=== PATIENT | male | born 1955 | race African-American/Black ===

== ENCOUNTER → 2016-07-27 | Outpatient (CLI) | payer BC ==
--- NOTE | 2016-07-27 17:18 | US ---
HISTORY: Right upper quadrant pain. Study: Abdominal ultrasound. Comparison: None. Technique: Multiple smith scale and color flow Doppler images of the abdomen were obtained. Findings: The liver is enlarged to 18.5 cm and demonstrates increased echotexture consistent with diffuse fatt y infiltration. No intraparenchymal mass or intrahepatic biliary ductal dilatation can be identifie d. A large shadowing gallstone is seen within the gallbladder neck. The gallbladder wall measures 2 mm. No evidence of pericholecystic fluid. The common bile duct is normal measuring 3 mm. The visualized portions of the pancreas appears normal. The spleen is not well seen. The right and left kidney are normal in echotexture and size. The right kidney measures 9.4 cm. The left kidney measures 11.5 cm. No mass, hydronephrosis, or stone can be identified. The visualized portions of the abdominal aorta are normal in size without aneurysmal dilatation. Th e inferior vena cava is unremarkable as well. IMPRESSION: 1. Cholelithiasis without sonographic evidence to suggest cholecystitis. 2. Hepatomegaly and hepatic steatosis. Reported By:
== END ==
LOC: RAD 08:25
PROVIDERS: ATTEND Family Medicine
DX: R10.11 Right upper quadrant pain (principal); K80.80 Other cholelithiasis without obstruction
CPT/HCPCS: 76700

== ENCOUNTER 2016-08-15 23:09 | Emergency (ER) | payer BC ==
[2016-08-15 23:29] VITALS: BP 167/93; BMI 31.3
[2016-08-15] MEDS ORDERED: DILAUDID INJ IVP ONE (23:35)
--- NOTE | 2016-08-15 23:45 | DR.GENAD ---
HPI - PCP Primary Care Physician: NFD - HPI Comment HPI Comment: Abdominal pain - Complaint/Symptoms Chief Complaint Doctors Comments: Abdomianl pain today. Onset was about 2100 hrs. He caharaterised this as being sharp in nature. Location is in the upper abdomen. It radiates to his back. He feels nauseous but has no vomitting or diarrhea. He has had grilled meat/bajed meat and pull pork as part of August celebration today. The pain has been intermittent in nature for over 1 month now. He states that he presented to this E.D about 3 weeks ago and he was diagnosed via abdominal U/S with cholelithiasis. He has been scheduled for outpt. cholecystectomy by Dr. Francine Cochran for 09/12/16 in [place], [place]. He has Tramadol at home for Hip OA but it did not ewlieve this pain. Chief Complaint:: "GALL BLADDER ATTACK" BACK AND ABDOMINAL PAIN Self Treatment fo Chief Complaint: use of Tramadol x 1 tablet. - Nurses notes reviewed Nurses Notes Review: Yes - Source History Provided: Patient, Family Member - Mode of Arrival Mode of Arrival: Ambulatory - Timing Onset of Chief Complaint: 08/15/16 Came on: Gradually - Duration Duration: Since Onset How lon Duration: Hours - Location Location: Epigastric area - Severity Severity: Moderate, Severe - Modifying Factors Worsens:: meals - Associated Signs and Symptoms Associated Signs and Symptoms: nausea PMH - PMH Past Medical History: Yes Past Medical History: Arthritis Past Medical History Comment: Gallstones recently dx. 3 weeks ago. Past Surgical History: Yes Surgical History: Appendectomy, Other (bilateral Inguinal hernia repair) - Family History History of Family Medical Conditions: No - Social History Does patient currently use any type of tobacco product: No Have you used tobacco products in the last 12 months: No Type of Tobacco Use: Cigarettes Does any household member use tobacco: No Alcohol Use: Occasionally Do you use any recreational Drugs:: No Lives With: Family Lives Where: Home - infectious screening In the last 2 months have you had wt loss of >10#?: NO Have you had fever, night sweats or hemotysis?: No Have you traveled outside the country in the last 6 months?: No Isolation: Standard ROS - Review of Systems Gastrointestinal/Abdominal: Abdominal Pain (epigastric) PE - Vital Signs Vitals: Temperature 98.2 F Pulse Rate 59 Respiratory Rate 16 Blood Pressure 167/93 O2 Sat by Pulse Oximetry 100 - General Limitations: No Limitations General Appearance: Alert - Head Head Exam: Normal Inspection, Normocephalic - Eyes Eye exam: Normal Appearance - ENT ENT Exam: Normal Exam External Ear Exam: Normal External Inspection TM/Canal Exam: Bilateral Normal Nose Exam: Normal Nose Exam Mouth Exam: Normal Inspection Throat Exam: Normal Inspection - Neck Neck Exam: Normal Inspection, Full ROM, Trachea Midline - Chest Chest Inspection: Normal Inspection, Symmetric Chest Wall Rise - Respiratory Respiratory Exam: Normal Lung Sounds Bilat Respiratory Exam: Bilateral Clear to Auscultation - Cardiovascular Cardiovascular Exam: Regular Rate, Normal Rhythm, +S1, +S2 - Abdominal Exam Abdominal Exam: Normal Inspection, Normal Bowel Sounds, Soft, Tenderness Abdominal Tenderness: RUQ, Epigastrium - Extremities Extremities Exam: Normal Inspection, Full ROM - Back Back Exam: Normal Inspection - Neurologic Neurological Exam: Alert, Oriented X3, CN II-XII Intact, Normal Gait - Psychiatric Psychiatric Exam: Normal Affect, Normal Mood - Skin Skin Exam: Warm, Dry, Intact, Normal Color MDM - Additional Information Additional Information Obtained From: Family - Differential Diagnosis Differential Diagnosis: PUD; Cholelithiasis; Cholecystitis; Pancreatitis Course - Reevaluation 1st: Improved 2nd: Resolved (at 00:45 hrs.) - Education/Counseling Education/Counseling: Patient, Family, Education Educated On: Treatment, Diagnosis, Prognosis ROR - Labs Reviewed Result Diagrams: 08/15/16 23:58 08/15/16 23:58 Laboratory: WBC 10.4 X10^3/uL (3.6-10.0) H 08/15/16 23:58 RBC 5.23 X10^6/uL (4.7-6.0) 08/15/16 23:58 Hgb 12.9 g/dL (13.5-18.0) L 08/15/16 23:58 Hct 39.7 % (42.0-54.0) L 08/15/16 23:58 MCV 76.0 fL (80.0-100.0) L 08/15/16 23:58 MCH 24.6 pg (27.0-34.0) L 08/15/16 23:58 MCHC 32.4 g/dL (33.0-35.0) L 08/15/16 23:58 RDW 14.2 % (11.6-16.5) 08/15/16 23:58 Plt Count 154 X10^3/uL (150.0-450.0) 08/15/16 23:58 Plt Count Comment Adequate (ADEQUATE) 08/15/16 23:58 MPV 9.3 fL (7.4-11.0) 08/15/16 23:58 Neut % 60.8 % (42.0-75.0) 08/15/16 23:58 Lymph % 26.5 % (21.0-51.0) 08/15/16 23:58 [place] % 8.1 % (0.0-13.0) 08/15/16 23:58 Eos % 3.7 % (0.9-2.9) H 08/15/16 23:58 Baso % 0.9 % (0.2-1.0) 08/15/16 23:58 Neut # 6.3 x10^3/uL (2.2-4.8) H 08/15/16 23:58 Lymph # 2.8 X10^3/uL (1.3-2.9) 08/15/16 23:58 [place] # 0.8 x10^3/uL (0.3-0.8) 08/15/16 23:58 Eos # 0.4 x10^3/uL (0.0-0.2) H 08/15/16 23:58 Baso # 0.1 X10^3/uL (0.0-0.1) 08/15/16 23:58 Absolute Nucleated RBC 0.0 /100WBC 08/15/16 23:58 Plt Morphology Comment Normal (NORMAL) 08/15/16 23:58 RBC Morphology Abnormal (NORMAL) 08/15/16 23:58 Hypochromasia Slight A 08/15/16 23:58 Sodium 137 mmol/L (136-145) 08/15/16 23:58 Corrected Sodium 137 mmol/L (136-145) 08/15/16 23:58 Potassium 3.6 mmol/L (3.5-5.1) 08/15/16 23:58 Chloride 104 mmol/L (98-107) 08/15/16 23:58 Carbon Dioxide 25.3 mmol/L (21-32) 08/15/16 23:58 BUN 15 mg/dL (7-18) 08/15/16 23:58 Creatinine 0.94 mg/dL (0.70-1.30) 08/15/16 23:58 Est GFR (MDRD) Af Amer > 60 (>60) 08/15/16 23:58 Est GFR (MDRD) Non-Af > 60 (>60) 08/15/16 23:58 Glucose 119 mg/dL (65-99) H 08/15/16 23:58 Calcium 9.0 mg/dL (8.5-10.1) 08/15/16 23:58 Corrected Calcium TNP 08/15/16 23:58 Total Bilirubin 0.40 mg/dL (0.2-1.0) 08/15/16 23:58 AST 14 Units/L (15-37) L 08/15/16 23:58 ALT 31 Units/L (12-78) 08/15/16 23:58 Alkaline Phosphatase 67 Units/L (46-116) 08/15/16 23:58 Total Protein 7.3 g/dL (6.4-8.2) 08/15/16 23:58 Albumin 3.7 g/dL (3.4-5.0) 08/15/16 23:58 Globulin 3.6 g/dL (2.5-4.5) 08/15/16 23:58 Albumin/Globulin Ratio 1.0 Ratio (1.1-2.1) L 08/15/16 23:58 Amylase 92 Units/L (25-115) 08/15/16 23:58 Lipase 135 Units/L (73-393) 08/15/16 23:58 - XRAY XRAY Interpreted by: Self (C) XRAY Findings: CXR: NO acute disease; ABD: no free air, normal air/gas pattern. - Diagnosis Discharge Problem: Epigastric abdominal tenderness without rebound tenderness - Discharge Plan Disposition: 01 HOME, SELF-CARE Condition: Stable Prescriptions: Hydrocodone-Acet 5 mg/325 mg [NORCO 5 MG/325 MG *] 1 tab PO Q8H PRN #9 tab PRN Reason: - Follow ups/Referrals Follow ups/Referrals: NFD,None [Primary Care Provider] - 3 days - Instructions Instructions: Cholelithiasis
[2016-08-15] MEDS ORDERED: DILAUDID INJ ONE (23:56)
[2016-08-15] MEDS ORDERED: PHENERGAN INJ 25 MG IVP ONE (23:59)
[2016-08-16 00:10] LABS: BASOPHILS # (AUTO) 0.1 X10^3/uL (0.0-0.1); BASOPHILS % (AUTO) 0.9 % (0.2-1.0); EOSINOPHILS # (AUTO) 0.4 x10^3/uL (0.0-0.2); EOSINOPHILS % (AUTO) 3.7 % (0.9-2.9); HEMATOCRIT 39.7 % (42.0-54.0); HEMOGLOBIN 12.9 g/dL (13.5-18.0); LYMPHOCYTES # (AUTO) 2.8 X10^3/uL (1.3-2.9); LYMPHOCYTES % (AUTO) 26.5 % (21.0-51.0); MEAN CORPUSCULAR HEMOGLOBIN 24.6 pg (27.0-34.0); MEAN CORPUSCULAR HGB CONC 32.4 g/dL (33.0-35.0); MEAN PLATELET VOLUME 9.3 fL (7.4-11.0); MONOCYTES # (AUTO) 0.8 x10^3/uL (0.3-0.8); MONOCYTES % (AUTO) 8.1 % (0.0-13.0); NEUTROPHILS # (AUTO) 6.3 x10^3/uL (2.2-4.8); NEUTROPHILS % (AUTO) 60.8 % (42.0-75.0); PLATELET COUNT 154 X10^3/uL (150.0-450.0); RED BLOOD COUNT 5.23 X10^6/uL (4.7-6.0); RED CELL DISTRIBUTION WIDTH 14.2 % (11.6-16.5); WHITE BLOOD COUNT 10.4 X10^3/uL (3.6-10.0)
[2016-08-16 00:21] LABS: ALANINE AMINOTRANSFERASE 31 Units/L (12-78); ALBUMIN 3.7 g/dL (3.4-5.0); ALKALINE PHOSPHATASE 67 Units/L (46-116); AMYLASE 92 Units/L (25-115); ASPARTATE AMINO TRANSFERASE 14 Units/L (15-37); BLOOD UREA NITROGEN 15 mg/dL (7-18); CARBON DIOXIDE 25.3 mmol/L (21-32); CHLORIDE 104 mmol/L (98-107); COR NA(FOR HYPERGLY) 137 mmol/L (136-145); CREATININE 0.94 mg/dL (0.70-1.30); GLUCOSE 119 mg/dL (65-99); LIPASE 135 Units/L (73-393); SODIUM 137 mmol/L (136-145); TOTAL PROTEIN 7.3 g/dL (6.4-8.2); eGFR BLACK RACES > 60 (>60); eGFR NON BLACK RACES > 60 (>60)
[2016-08-16 00:40] LABS: HYPOCHROMASIA SLIGHT; PLATELET MORPHOLOGY COMMENT NORMAL (NORMAL)
[2016-08-16] MEDS ORDERED: PROTONIX TAB 40 MG PO ONE ×2 (00:47)
--- NOTE | 2016-08-16 03:57 | RAD ---
Acute abdomen series-three views Indication: Abdominal pain. Findings: There is no pneumothorax or effusion. There is no consolidation. There is no free air or p neumatosis. No dilated loop of bowel seen. Impression: No high-grade obstruction, free air or pneumatosis. Reported By:
== END 2016-08-16 01:00 | disposition home or self-care (01) ==
LOC: ER 23:14
DX: R10.13 Epigastric pain (principal)
CPT/HCPCS: 36415; 74022; 80053; 82150; 83690; 85025; 96365; 96374; 99283; A4216; A4222; J1170